=== PATIENT | male | born 1960 | race Caucasian/White ===

== ENCOUNTER → 2016-10-09 | Outpatient (CLI) | payer OTHER ==
[~2016-10-09] MED LIST: ASCO10004 PO; CHOL10003 PO; CYAN25009 PO; CYCL-259 PO; ESOM40CA PO; HYDR25TA6 PO; OMEG1CAP24 PO; VALS80TA3 PO
[2016-10-09 09:27] LABS: BLOOD UREA NITROGEN 23 mg/dL (7-18)
[2016-10-09 09:30] LABS: ASPARTATE AMINO TRANSFERASE 17 U/L (15-37)
== END | disposition home or self-care (01) ==
LOC: STAR 08:04
PROVIDERS: ATTEND Surgery
DX: Z01.818 Encounter for other preprocedural examination (principal); D48.1 Neoplasm of uncertain behavior of connective and other soft tissue
CPT/HCPCS: 36415; 80053

== ENCOUNTER 2016-10-14 08:51 | Day surgery (SDC) | payer OTHER ==
[~2016-10-14] VITALS: Ht 177.8 cm; Wt 81.0 kg
[2016-10-14] MEDS ORDERED: LACTATED RINGERS 1,000 ML IV SCH (09:15)
[2016-10-14 09:18] VITALS: BP 136/87
[2016-10-14] MEDS ORDERED: FENTANYL PF 250 MCG/5ML ONE (09:34)
[2016-10-14] MEDS ORDERED: MIDAZOLAM 1 MG/ML, 2ML ONE (09:35)
[2016-10-14] MEDS ORDERED: BUPIVACAINE/PF-EPI 0.5% 1:200K ONE (10:18)
[2016-10-14] MEDS ORDERED: SUCCINYLCHOLINE 20 MG/ML, 10ML ONE (10:25)
[2016-10-14] MEDS ORDERED: PROPOFOL 10 MG/ML, 20ML ONE (10:25)
[2016-10-14] MEDS ORDERED: ONDANSETRON 2MG/ML, 2ML ONE (10:25)
[2016-10-14] MEDS ORDERED: CEFAZOLIN 1,000 MG ONE (10:25)
[2016-10-14] MEDS ORDERED: NEOSTIGMINE 1 MG/ML, 10ML ONE (10:25)
[2016-10-14] MEDS ORDERED: GLYCOPYRROLATE 0.2MG/1ML ONE (10:25)
[2016-10-14] MEDS ORDERED: ROCURONIUM 10 MG/ML ONE (10:25)
[2016-10-14] MEDS ORDERED: ONDANSETRON 2MG/ML, 2ML IVPush PRN (11:00)
[2016-10-14] MEDS ORDERED: HYDROmorphone 1 MG/ML, 1ML IV PRN (11:00)
[2016-10-14] MEDS ORDERED: LABETALOL 5MG/ML, 20ML IV PRN (11:00)
[2016-10-14] MEDS ORDERED: ACETAMINOPHEN 325 MG TABLET PO PRN (11:00)
[2016-10-14] MEDS ORDERED: METOCLOPRAMIDE 5 MG/ML, 2ML IV PRN (11:00)
[2016-10-14] MEDS ORDERED: OXYcodone 5 MG/5 ML ORAL.SOL UDC PO PRN (11:00)
[2016-10-14] MEDS ORDERED: hydrALAzine 20 MG/ML, 1ML IV PRN (11:00)
[2016-10-14] MEDS ORDERED: FENTANYL PF 100 MCG/2ML IV PRN (11:00)
[2016-10-14] MEDS ORDERED: OXYcodone 5 MG/5 ML ORAL.SOL UDC ONE (11:11)
== END 2016-10-14 14:10 | disposition home or self-care (01) ==
LOC: OUT 08:51
PROVIDERS: ATTEND Surgery
DX: M79.89 Other specified soft tissue disorders (principal); I10 Essential (primary) hypertension; Z98.49 Cataract extraction status, unspecified eye; Z96.1 Presence of intraocular lens; Z82.49 Family history of ischemic heart disease and other diseases of the circulatory system; Z80.8 Family history of malignant neoplasm of other organs or systems; F17.210 Nicotine dependence, cigarettes, uncomplicated; Z72.89 Other problems related to lifestyle
CPT/HCPCS: 21931; 88304; J0330; J0690; J2250; J2405; J2704; J2710; J3010; J7120; J3490